=== PATIENT | male | born 1940 | race Caucasian/White ===

== ENCOUNTER 2024-11-22 14:42 | Outpatient (AMB) | payer BC, SELFPAY ==
--- NOTE | 2024-11-22 14:58 | A.OFFPC_ITS ---
Vital Signs 11/22/24 15:06 Height 5 ft 10 in Weight 190 lb 6 oz BMI 27.3 BP 130/60 Blood Pressure Location Lt brachial Position Sitting Respiration 14 Pulse 78 Pulse Source Pulse Oximeter Temp 97.6 F Temp Source Oral Pulse Oximetry (%) 97 Oxygen Delivery Method Room Air Intake Visit Reasons: Est. Care Allergies atorvastatin [From Lipitor] Allergy (Intermediate, Verified 11/22/24 14:59) Rash Medication List - Last Reconciled 11/22/24 by Albert Matthew MD finasteride 5 mg PO DAILY hydrochlorothiazide 25 mg PO DAILY simvastatin 20 mg PO BEDTIME tamsulosin 0.8 mg PO DAILY Tobacco use date assessed: 11/22/24 Fall risk assessment: No Falls in past year Last assessed Fall Risk: 11/22/24 Dental Screening Dental Screen Date: 11/22/24 Did you have a dental visit in the last 12 months?: No Did you have a dental problem in the last 6 months where you did not have access to dental care?: No Was dental information given to patient?: Patient has dentist HPI Est. Care HPI Details New Patient? ?? Prior PCP:? Dr Fleming Last office visit/CPE:? 6 mos routine viist Acute issue(s):? Ear Wax - tried some pharmacy remedies. Last Audiology testing was 5 yrs ago ?? PMHx:? HTN, BPH, HLD, Basal Cell CA on L forehead/scalp. Lung nodule that never changed - stopped surveillance. SurgHx:? Gall Bladder SocHx: Quit Cigs 12 yrs ago, EtOH 1 beer occassionally when out to eat. About 2 per month. [facility] Surgical History (Updated 11/22/24 @ 15:15 by RUTHANN Noel) History of cholecystectomy Social History Housing: House Patient Tobacco Use Status: Former Tobacco user e-Cigarette/Vaping Use: Never Used Second Hand Smoke Exposure: No service: Yes Current occupational status: retired Current occupational exposures/hazards: No Cognitive needs: No Hearing needs: No Vision needs: No Questionnaire PHQ-9 Over the last 2 weeks, how often have you been bothered by any of the following problems? 1. Little interest or pleasure in doing things: not at all 2. Feeling down, depressed, or hopeless: not at all 3. Trouble falling or staying asleep, or sleeping too much: not at all 4. Feeling tired or having little energy: several days 5. Poor appetite or overeating: not at all 6. Feeling bad about yourself - or that you are a failure or have let yourself or your family down: not at all 7. Trouble concentrating on things, such as reading the newspaper or watching television: not at all 8. Moving or speaking so slowly that other people could have noticed. Or the opposite - being so fidgety or restless that you have been moving around a lot more than usual: not at all 9. Thoughts that you would be better off or of hurting yourself in some way: not at all Total score: 1 Depression Screening Interpretation: Negative Depression Screening Done: Yes 27595 - PHQ-9 Billing: Yes Source: Developed by Drs. Ja Heck, Niesha Davila, Earnest Drake and colleagues, with an educational gustavo from [employer]. Thrive Questionnaire Date Thrive assessed: 11/22/24 I am a: Patient What is your living situation today?: I have a steady place to live Within the past 12 months, did the food you bought not last and you didn't have the money to get more?: Never true Within the past 12 months, did you worry whether your food would run out before you got money to buy more?: Never true Do you have trouble paying for medicines?: No Do you have trouble getting transportation to medical appointments?: No Do you have trouble paying your heating and electricity bill?: No Do you have trouble taking care of your child, family member or friend?: No Do you have trouble with day-to-day activities such as bathing, preparing meals, shopping, managing finances, etc.?: No Are you currently unemployed and looking for a job?: No Are you interested in more education?: No Please select the resources that you would like help with: None Currently or been in a relationship where the following occur: I choose not to answer THRIVE Score: 0 AUDIT C Alcohol Use Questionnaire (AUDIT-C) 1. How often do you have a drink containing alcohol?: Monthly or less 2. How many drinks containing alcohol do you have on a typical day when you are drinking?: 1 or 2 3. How often do you have six or more drinks on one occasion?: Never Total Score: 1 JESUS-7 AMB Questionnaire JESUS-7 Date JESUS - 7 assessed: 11/22/24 Feeling nervous, anxious, or on edge: 0 = Not at all Not being able to stop or control worryin = Not at all Worrying too much about different things: 0 = Not at all Trouble relaxin = Not at all Being so restless that it is hard to sit still: 0 = Not at all Becoming easily annoyed or irritable: 0 = Not at all Feeling afraid as if something awful might happen: 0 = Not at all Total JESUS-7 score (0-4 normal; 5-9 mild; 10-14 moderate; 15-21 severe): 0 Source: Developed by Drs. Ja Heck, Niesha Davila, Earnest Drake and colleagues, with an educational gustavo from [employer]. JESUS-7 Assessment Billing JESUS-7 Assessment Tool: JESUS-7 Assessment 51919 Review of Systems Const Denies chills, Denies fatigue, Denies fever(s), Denies headache(s) and Denies weakness ENT Denies dizziness and Denies headache(s) Card Denies chest pain, Denies lightheadedness, Denies dyspnea and Denies other (Palpitations) Resp Denies cough, Denies dyspnea, Denies wheezing and Denies other ( shortness of breath) Musc Denies numbness and Denies tingling Neuro Denies dizziness, Denies headache(s), Denies numbness, Denies tingling, Denies paresthesias and Denies weakness Psych Denies anxiety and Denies depression Endo Denies fatigue Aller/Immun Denies wheezing Physical exam (Primary Care) Vital Signs: Last Vital Signs Temp 97.6 F 11/22/24 15:06 Pulse 78 11/22/24 15:06 Resp 14 11/22/24 15:06 BP 130/60 11/22/24 15:06 Pulse Ox 97 11/22/24 15:06 Oxygen Delivery Method Room Air 11/22/24 15:06 BMI result Body Mass Index 27.3 Tobacco/Smoking Status: Tobacco use Status Tobacco use date assessed 11/22/24 11/22/24 15:01 Patient Tobacco Use Status Former Tobacco user 11/22/24 15:01 e-Cigarette/Vaping Use Never Used 11/22/24 15:01 PHQ-9: PHQ-9 Score PHQ-9: Total score 1 11/22/24 15:10 Depression Screening Interpretation: Negative Thrive Assessment: Date of Thrive Assessment Date Thrive assessed 11/22/24 11/22/24 15:09 Currently or been in a relationship where the following occur: I choose not to answer Const General: no acute distress and well developed Nutritional Appearance: well nourished Orientation/consciousness: patient oriented x3 HENMT Head: Yes normocephalic and Yes atraumatic Eyes General: appearance normal, both eyes and all related structures Pupils: Equal, round and reactive pupils present EOM: EOMs intact bilaterally Resp Effort & Inspection: normal respiratory effort Auscultation: clear to auscultation bilaterally Cardio Rate: regular rate Rhythm: regular rhythm Heart sounds: S1 normal heart sound present, S2 normal heart sound present, no gallops, no murmurs and no rubs Neuro General: patient oriented x3 and gait normal Cranial nerves: Yes Equal, round and reactive pupils present Psych Affect: normal affect Coding Level of Care Code New Pt Level 3 (26776) Diagnoses Hypertension I10 Cerumen impaction H61.20 BPH (benign prostatic hyperplasia) N40.0 Screening for prostate cancer Z12.5 History of smoking Z87.891 Lung nodule R91.1 HLD (hyperlipidemia) E78.5 Change in hearing H91.90 Laboratory exam ordered as part of routine general medical examination Z00.00 Additional Codes JESUS-7 Assessment Billing - JESUS-7 Assessment Tool: JESUS-7 Assessment 23180 ([id number]) PHQ-9 - 37708 - PHQ-9 Billing: Yes ([id number]) Assessment & Plan Assessment & Plan (1) Hypertension: Code(s): I10 - Essential (primary) hypertension Category: Medical Plan: Blood?pressure?is?controlled.??Goal?is?less?than?140/90 Continue?current?medication (2) Cerumen impaction: Code(s): H61.20 - Impacted cerumen, unspecified ear Category: Medical Plan: Patient?notes?frequent?cerumen?impactions. He?has?been?using?Debrox?drops?and?has?no?current?cerumen?in?ear?canals. Does?have?some?irritation?there?and?he?notes?significant?itch Can?try?ascetic?acid?drops If?not?improving?will?refer?to?ENT (3) BPH (benign prostatic hyperplasia): Code(s): N40.0 - Benign prostatic hyperplasia without lower urinary tract symptoms Category: Medical Plan: History?of?BPH?and?he?is?on?finasteride?and?tamsulosin. PSA?level?greater?than?6?and?patient?was?referred?to?Urology. Will?request?report (4) Screening for prostate cancer: Code(s): Z12.5 - Encounter for screening for malignant neoplasm of prostate Category: Medical Plan: Checking?PSA?which?will?likely?be?elevated?as?he?has?a?history?of?BPH Will?follow (5) History of smoking: Code(s): Z87.891 - Personal history of nicotine dependence Category: Social Hx Plan: Patient?with?over?10?years?ago (6) Lung nodule: Code(s): R91.1 - Solitary pulmonary nodule Category: Medical Plan: History?of?lung?nodule?and?has?completed?surveillance (7) HLD (hyperlipidemia): Code(s): E78.5 - Hyperlipidemia, unspecified Category: Medical Plan: Check?lipids Continue?simvastatin (8) Change in hearing: Code(s): H91.90 - Unspecified hearing loss, unspecified ear Category: Medical Plan: Some?changes?in?hearing?and?patient?has?some?difficulty?hearing?examiner?today Referred?to?audiology (9) Laboratory exam ordered as part of routine general medical examination: Code(s): Z00.00 - Encounter for general adult medical examination without abnormal findings Category: Medical Plan: Check?labs Orders: Orders Complete Blood Count Auto Diff Today Z00.00 - Encounter for general adult medical examination without abnormal findings Lipid Panel Today Z00.00 - Encounter for general adult medical examination without abnormal findings Microalbumin, Random (w Creat) Today I10 - Essential (primary) hypertension UA CC w/rflx Micro + Cult Today Z00.00 - Encounter for general adult medical examination without abnormal findings TSH reflex Free T4 Today Z00.00 - Encounter for general adult medical examination without abnormal findings Vitamin B12 and Folate Today E53.8 - Deficiency of other specified B group vitamins Comprehensive [place]. Panel Fast Today Z00.00 - Encounter for general adult medical examination without abnormal findings Prostate Specific Antigen Scr Today Z12.5 - Encounter for screening for malignant neoplasm of prostate Vitamin D 25-OH Total Today E55.9 - Vitamin D deficiency, unspecified Referrals Audiology Referral H91.90 - Unspecified hearing loss, unspecified ear Medications: New acetic acid 2% 4 drps otic (ear) left TID 7 days 15 mL 1RF
[2024-11-22 15:06] VITALS: BP 130/60; PULSE 78; RESP 14; TEMP 36.4; O2SAT 97; BMI 27.3
== END 2024-11-22 15:43 | disposition home or self-care (01) ==
LOC: HO.HMCFM 14:43
PROVIDERS: PCP Family Medicine; Visit Provider Family Medicine
DX: I10 Essential (primary) hypertension (principal); H61.20 Impacted cerumen, unspecified ear; N40.0 Benign prostatic hyperplasia without lower urinary tract symptoms; Z12.5 Encounter for screening for malignant neoplasm of prostate; Z87.891 Personal history of nicotine dependence; R91.1 Solitary pulmonary nodule; E78.5 Hyperlipidemia, unspecified; H91.90 Unspecified hearing loss, unspecified ear; Z00.00 Encounter for general adult medical examination without abnormal findings

== ENCOUNTER → 2024-11-22 14:42 | Outpatient (BNVA) | payer BC, SELFPAY | PROVIDERS: PCP Family Medicine; Visit Provider Family Medicine | DX: Z76.89 Persons encountering health services in other specified circumstances (principal); I10 Essential (primary) hypertension; H61.20 Impacted cerumen, unspecified ear; N40.0 Benign prostatic hyperplasia without lower urinary tract symptoms; R91.1 Solitary pulmonary nodule; E78.5 Hyperlipidemia, unspecified; Z79.899 Other long term (current) drug therapy; Z87.891 Personal history of nicotine dependence | CPT/HCPCS: 96127 ==

== ENCOUNTER 2024-11-23 08:21 | Outpatient (REF) | payer BC, SELFPAY ==
[2024-11-23 11:26] LABS: MANUAL DIFF FLAG NO
[2024-11-23 11:55] LABS: Appearance Urine Clear; Color Urine Yellow; Glucose Urine UA Negative (Negative); Leukocyte Esterase Urine Negative (Negative); Nitrite Urine Negative (Negative); PH 6.5 (5.0-9.0); Urine Blood Negative (Negative); Urine Ketones Trace mg/dL (Negative); Urine Protein Negative (Neg-Trace)
[2024-11-23 12:02] LABS: Basophils Percent Auto 0.2 % (0-2); Eosinophils Absolute Auto 0.1 X10*3/uL (0.0-0.4); Eosinophils Percent Auto 1.1 % (0-4); Hematocrit 42.9 % (42.0-52.0); Imm Gran Abs Auto 0.01 X10*3/uL (0.00-0.03); Imm Gran Pct Auto 0.2 % (0.0-0.4); Lymphocytes Absolute Auto 0.9 X10*3/uL (1.2-4.9); Lymphocytes Percent Auto 16.3 % (20-40); Mean Corpuscular Hemoglobin 31.7 pg (27.0-33.0); Mean Corpuscular Volume 90.7 fL (80.0-98.0); Mean Platelet Volume 9.9 fL (9.4-12.4); Monocytes Absolute Auto 0.6 X10*3/uL (0.1-1.2); Monocytes Percent Auto 10.4 % (2-11); Neutrophils Percent Auto 71.8 % (45-73); Platelet Count 165 X10*3/uL (160-400); Red Blood Count 4.73 X10*6/uL (4.60-5.80); White Blood Count 5.6 X10*3/uL (4.8-10.8)
[2024-11-23 12:23] LABS: Alanine Aminotransferase 28 U/L (0-40); Alkaline Phosphatase 83 U/L (39-117); Anion Gap 11 (12-20); Aspartate Amino Transferase 29 U/L (5-37); Blood Urea Nitrogen 13 mg/dL (9-16); Carbon Dioxide 30 mmol/L (22-29); Chloride 104 mmol/L (96-108); Cholesterol 146 mg/dL (<200); Estimated Glomerular Filt Rate > 60; Glucose Fasting 94 mg/dL (60-99); HDL Cholesterol 34 mg/dL (>40); LDL Cholesterol Calculated 80 mg/dL (<100); Potassium 3.7 mmol/L (3.3-5.1); Sodium 141 mmol/L (135-145); Total Protein 6.7 g/dL (6.5-8.0); Triglycerides 162 mg/dL (<150)
[2024-11-23 12:31] LABS: Creatinine Urine 195.08 mg/dL; Microalbum/Creatinine Ratio Ur 10.7 ug/mg cr (<30)
[2024-11-23 12:32] LABS: TSH reflex Free T4 1.88 uIU/mL (0.32-4.0); Vitamin D 25-OH Total 45.5 ng/mL (>30)
[2024-11-23 12:48] LABS: Folate 12.5 ng/mL (> or = 4.0); Prostate Specific Antigen Scr 3.43 ng/mL (<0.05-4.0); Vitamin B12 707 pg/mL (200-900)
== END 2024-11-23 08:22 | disposition home or self-care (01) ==
LOC: HO.WFDLDS 08:21
PROVIDERS: Visit Provider Family Medicine
DX: Z00.00 Encounter for general adult medical examination without abnormal findings (principal); E53.8 Deficiency of other specified B group vitamins; I10 Essential (primary) hypertension; Z12.5 Encounter for screening for malignant neoplasm of prostate; E55.9 Vitamin D deficiency, unspecified
CPT/HCPCS: 36415; 80053; 80061; 81003; 82043; 82306; 82570; 82607; 82746; 84153; 84443; 85025

== ENCOUNTER 2024-12-21 08:38 | Outpatient (REF) | payer BC, SELFPAY | END 2024-12-21 08:39 | disposition home or self-care (01) | LOC: HO.SH 08:38 | PROVIDERS: Visit Provider Family Medicine | DX: Z01.118 Encounter for examination of ears and hearing with other abnormal findings (principal); H90.3 Sensorineural hearing loss, bilateral | CPT/HCPCS: 92557 ==

== ENCOUNTER 2025-02-17 09:56 | Outpatient (AMB) | payer BC, SELFPAY ==
--- NOTE | 2025-02-17 10:29 | A.OFFVIS_ITS ---
Intake Visit Reasons: BPH without lower urinary tract symptoms Intake Note: PT PRESENTS FOR: NEW PT BPH W/OUT LOWER URINARY TRACT SX UROLOGY MEDICATIONS: TAMSULOSIN, FINASTERIDE BLOOD THINNERS: NONE Hand Straightener Required: No Accompanied by: Self / Same As Patient Allergies atorvastatin (From Lipitor) Allergy (Intermediate, Verified 02/17/25 10:30) Rash HPI Comments Details: Robert is a pleasant male. He is a patient of Dr. Matthew. He is seen for the following urologic conditions - lower urinary tract symptoms PVR 95 cc Treated for recent episode UTI/prostatitis Had stopped his prostate medications Restart finasteride and tamsulosin Bladder ultrasound Three-month follow-up cystoscopy office Lower urinary tract symptoms Previously reported being on finasteride and tamsulosin PFSH Surgical History (Updated 11/22/24 @ 15:15 by RUTHANN Noel) History of cholecystectomy Social History Housing: House Patient Tobacco Use Status: Former Tobacco user e-Cigarette/Vaping Use: Never Used Second Hand Smoke Exposure: No service: Yes Current occupational status: retired Current occupational exposures/hazards: No Cognitive needs: No Hearing needs: No Vision needs: No Review of Systems Const Denies chills and Denies fever(s) Card Reports no additional complaints and Denies syncope Resp Denies cough GI Denies abdominal pain and Denies heartburn Reports as per HPI and Denies change in libido Neuro Denies syncope Psych Denies change in libido Endo Denies change in libido Physical Exam Const General: cooperative, healthy appearing, comfortable and no acute distress Orientation/consciousness: patient oriented x3 HEENT Face and sinus: Yes normal facial exam Mouth: moist mucous membranes Neck Neck: Yes normal visual inspection, Yes full ROM and Yes trachea midline Chest Chest palpation & inspection: normal inspection of the chest Resp Effort & Inspection: normal respiratory effort, able to speak in complete sentences and no respiratory distress GI Inspection: Yes normal to inspection Back/Spine/Pelvis Cervical Spine: normal cervical lordosis Thoracic/Lumbar Spine: thoracic and lumbar spine normal to inspection Skin General skin exam: no rashes or lesions noted Neuro General: patient oriented x3, gait normal, tone normal and moves all extremities Extrem General: Yes normal to inspection and Yes capillary refill normal Office Procedures Post Void Residual Post Residual Void Post Void Residual (PVR): 95 [id number] Void Residual by ultrasound Assessment & Plan Assessment & Plan (1) BPH (benign prostatic hyperplasia): Code(s): N40.0 - Benign prostatic hyperplasia without lower urinary tract symptoms Category: Medical Plan Three-month follow-up cystoscopy office Orders: Orders AMB Urinalysis Automated Today Z13.9 - Encounter for screening, unspecified AMB Post Void Residual by ultrasound Today N40.0 - Benign prostatic hyperplasia without lower urinary tract symptoms US bladder Today N40.0 - Benign prostatic hyperplasia without lower urinary tract symptoms Medications: New finasteride 5 mg PO DAILY 90 tabs 1RF 90 days N40.0 - Benign prostatic hyperplasia without lower urinary tract symptoms Changed From tamsulosin 0.8 mg PO DAILY N40.0 - Benign prostatic hyperplasia without lower urinary tract symptoms To tamsulosin 0.8 mg (2 x 0.4 mg) PO DAILY 180 caps 0RF 90 days N40.0 - Benign prostatic hyperplasia without lower urinary tract symptoms Patient Instructions: This note is constructed using voice recognition software. While every effort has been made to ensure accuracy oil processing technician errors may have been included. Imaging studies, laboratory and physical exam results were discussed and reviewed in detail. No major barriers to patient understanding were identified. An opportunity to ask questions regarding the treatment plan was provided. All questions were answered. The patient expressed understanding and agreement with the above treatment plan. The patient is aware they should contact our office by phone for worsening of their current condition or the appearance of new urologic symptoms. Compliance is encouraged with any medications and followup testing that is ordered. It is a privilege to participate in the urologic care of your patient. If you have any questions or concerns regarding treatment for the above conditions, or other urologic issues, please do not hesitate to contact me. The office telephone contact is [phone]. Sincerely, Dr Yohannes Denton MD, [facility] - Urology Compassionate Specialist Care for the Genitourinary System Coding Level of Care Code New Pt Level 4 (18131) Diagnoses BPH (benign prostatic hyperplasia) N40.0 CPT Codes Post Residual Void - PVR CPT Code: 37060-Cvcl Void Residual by ultrasound ([id number])
== END 2025-02-17 11:03 | disposition home or self-care (01) ==
LOC: HO.HUSH 10:09
PROVIDERS: PCP Family Medicine; Visit Provider Urology
DX: N40.0 Benign prostatic hyperplasia without lower urinary tract symptoms (principal)
CPT/HCPCS: 99204

== ENCOUNTER → 2025-02-17 09:56 | Outpatient (BNVA) | payer BC, SELFPAY | PROVIDERS: PCP Family Medicine; Visit Provider Urology | DX: N40.0 Benign prostatic hyperplasia without lower urinary tract symptoms (principal) | CPT/HCPCS: 51798 ==

== ENCOUNTER 2025-03-30 14:01 | Outpatient (AMB) | payer BC, SELFPAY ==
--- NOTE | 2025-03-30 14:02 | A.OFFPC_ITS ---
Vital Signs 03/30/25 14:09 Height 5 ft 10 in Weight 184 lb 6 oz BMI 26.5 BP 124/60 Blood Pressure Location Rt brachial Position Sitting Respiration 14 Pulse 86 Pulse Source Pulse Oximeter Temp 97.5 F Temp Source Temporal Artery Scan Pulse Oximetry (%) 95 Oxygen Delivery Method Room Air Intake Visit Reasons: Physical Intake Note: Ramos presents in the office today for his annual physical. Clay Hoister Required: No Allergies atorvastatin (From Lipitor) Allergy (Intermediate, Verified 03/30/25 14:06) Rash Medication List - Last Reconciled 03/30/25 by Alebrt Matthew MD acetic acid 2% 4 drps otic (ear) left TID 7 days finasteride 5 mg PO DAILY 90 days hydrochlorothiazide 25 mg PO DAILY simvastatin 20 mg PO BEDTIME tamsulosin 0.8 mg (2 x 0.4 mg) PO DAILY 90 days Tobacco use date assessed: 03/30/25 Fall risk assessment: No Falls in past year Last assessed Fall Risk: 03/30/25 Dental Screening Dental Screen Date: 03/30/25 Did you have a dental visit in the last 12 months?: Yes Did you have a dental problem in the last 6 months where you did not have access to dental care?: No Was dental information given to patient?: Patient has dentist HPI Physical HPI Details 84 y/o male presents for a CPE with f/u labs. Labs drawn 11/23/24. Reviewed labs with pt. Triglycerides 162. TC 146. LDL 80. HDL low at 34. PSA 3.43. Vitamin D 45.5. BP today 124/60, 86p. He is on hydrochlorothiazide 25mg daily. Has complaints of some ear irritation. Reports constipation. Notes some unsteady gait. Does have some mild tremor on one side. Pt also notes issues with words. Also reports some vision changes. HPI Comments History of Present Illness Details Documentation assistance for Albert Matthew MD, was provided by Paulo Sanchez,? Vehicle Calibration Engineer on 03/30/2025 at 2:31 PM EST. I, Dr. Matthew, have read, observed, and verified documentation. ? PFSH Surgical History (Updated 11/22/24 @ 15:15 by RUTHANN Noel) History of cholecystectomy Social History Housing: House Alcohol intake: former Patient Tobacco Use Status: Former Tobacco user e-Cigarette/Vaping Use: Never Used Second Hand Smoke Exposure: No service: Yes Current occupational status: retired Current occupational exposures/hazards: No Cognitive needs: No Hearing needs: No Vision needs: No Questionnaire PHQ-9 Over the last 2 weeks, how often have you been bothered by any of the following problems? 1. Little interest or pleasure in doing things: not at all 2. Feeling down, depressed, or hopeless: not at all 3. Trouble falling or staying asleep, or sleeping too much: not at all 4. Feeling tired or having little energy: more than half the days 5. Poor appetite or overeating: more than half the days 6. Feeling bad about yourself - or that you are a failure or have let yourself or your family down: not at all 7. Trouble concentrating on things, such as reading the newspaper or watching television: not at all 8. Moving or speaking so slowly that other people could have noticed. Or the opposite - being so fidgety or restless that you have been moving around a lot more than usual: not at all 9. Thoughts that you would be better off or of hurting yourself in some way: not at all Total score: 4 Depression Screening Interpretation: Negative Depression Screening Done: Yes 28131 - PHQ-9 Billing: Yes Source: Developed by Drs. Ja Heck, Niesha Davila, Earnest Drake and colleagues, with an educational gustavo from [employer]. Thrive Questionnaire Date Thrive assessed: 03/30/25 I am a: Patient What is your living situation today?: I have a steady place to live Within the past 12 months, did the food you bought not last and you didn't have the money to get more?: Never true Within the past 12 months, did you worry whether your food would run out before you got money to buy more?: Never true Do you have trouble paying for medicines?: No Do you have trouble getting transportation to medical appointments?: No Do you have trouble paying your heating and electricity bill?: No Do you have trouble taking care of your child, family member or friend?: No Do you have trouble with day-to-day activities such as bathing, preparing meals, shopping, managing finances, etc.?: No Are you currently unemployed and looking for a job?: No Are you interested in more education?: No Please select the resources that you would like help with: None Currently or been in a relationship where the following occur: I choose not to answer THRIVE Score: 0 AUDIT C Alcohol Use Questionnaire (AUDIT-C) 1. How often do you have a drink containing alcohol?: Never 3. How often do you have six or more drinks on one occasion?: Never Total Score: 0 JESUS-7 AMB Questionnaire JESUS-7 Date JESUS - 7 assessed: 03/30/25 Feeling nervous, anxious, or on edge: 0 = Not at all Not being able to stop or control worryin = Not at all Worrying too much about different things: 0 = Not at all Trouble relaxin = Not at all Being so restless that it is hard to sit still: 0 = Not at all Becoming easily annoyed or irritable: 0 = Not at all Feeling afraid as if something awful might happen: 0 = Not at all Total JESUS-7 score (0-4 normal; 5-9 mild; 10-14 moderate; 15-21 severe): 0 Source: Developed by Drs. Ja Heck, Niesha Davila, Earnest Drake and colleagues, with an educational gustavo from [employer]. JESUS-7 Assessment Billing JESUS-7 Assessment Tool: JESUS-7 Assessment 21910 Review of Systems Const Denies chills, Denies fatigue, Denies fever(s), Denies headache(s) and Denies weakness Eyes Denies change in vision ENT Denies dizziness, Denies headache(s), Denies hearing loss, Denies nasal congestion, Denies sinus pain, Denies sinus pressure and Denies sore throat Card Denies chest pain, Denies lightheadedness, Denies dyspnea and Denies other (palpitations) Resp Denies cough, Denies dyspnea and Denies wheezing GI Denies abdominal pain, Denies melena, Denies hematochezia, Denies change in bowel habits, Denies dyspepsia and Denies nausea Denies hematuria and Denies dysuria Musc Denies abnormal gait, Denies myalgias, Denies arthralgias, Denies numbness and Denies tingling Skin/Breast Denies rash, Denies unusual bruising and Denies wounds Neuro Denies abnormal gait, Denies dizziness, Denies headache(s), Denies memory loss, Denies numbness, Denies Sensory deficit (Neuro), Denies tingling and Denies weakness Psych Denies anxiety, Denies depression and Denies memory loss Endo Denies cold intolerance, Denies fatigue, Denies heat intolerance, Denies polydipsia and Denies polyuria Demond/Lymph Denies easy bleeding and Denies easy bruising Aller/Immun Denies wheezing Physical exam (Primary Care) Vital Signs: Last Vital Signs Temp 97.5 F 03/30/25 14:09 Pulse 86 03/30/25 14:09 Resp 14 03/30/25 14:09 BP 124/60 03/30/25 14:09 Pulse Ox 95 03/30/25 14:09 Oxygen Delivery Method Room Air 03/30/25 14:09 BMI result Body Mass Index 26.5 Tobacco/Smoking Status: Tobacco use Status Tobacco use date assessed 03/30/25 03/30/25 14:04 Patient Tobacco Use Status Former Tobacco user 03/30/25 14:09 e-Cigarette/Vaping Use Never Used 03/30/25 14:09 PHQ-9: PHQ-9 Score PHQ-9: Total score 4 03/30/25 14:12 Depression Screening Interpretation: Negative Thrive Assessment: Date of Thrive Assessment Date Thrive assessed 03/30/25 03/30/25 14:12 Currently or been in a relationship where the following occur: I choose not to answer Const General: no acute distress, well developed, alert and awake Nutritional Appearance: well nourished Orientation/consciousness: patient oriented x3 HENMT Head: Yes normocephalic and Yes atraumatic Ears: hearing grossly normal bilaterally and TM's normal bilaterally General nose exam: Normal external nose present and Normal nares present Mouth: Normal oral and palatal mucosa present and moist mucous membranes Teeth and gingiva: dentition normal Throat: Yes posterior oropharynx normal Eyes General: appearance normal, both eyes and all related structures Pupils: Equal, round and reactive pupils present and Pupil accommodation reflex normal EOM: EOMs intact bilaterally Neck Neck: Yes normal visual inspection, Yes no lymphadenopathy and Yes trachea midline Thyroid: Thyroid normal Carotids: no bruits Lymphatic: no lymphadenopathy noted Chest Chest palpation & inspection: normal inspection of the chest Resp Effort & Inspection: normal respiratory effort Auscultation: clear to auscultation bilaterally Cardio Rate: regular rate Rhythm: regular rhythm Heart sounds: S1 normal heart sound present, S2 normal heart sound present, no gallops, no murmurs and no rubs Bruits: no abdominal aortic bruits and no carotid bruits GI Palpation (GI): No Abdominal aortic bruit present, Soft to palpation, nontender, No hepatosplenomegaly present and No Rebound tenderness present Auscultation: normal bowel sounds General: Yes no CVA tenderness Back/Spine/Pelvis Back: no CVA tenderness Cervical Spine: cervical ROM normal and No Cervical spine tenderness Thoracic/Lumbar Spine: thoraco-lumbar ROM normal, No pain with thoraco-lumbar ROM, No thoracic spinal tenderness and No lumbar spinal tenderness Skin Lesions: no lesions Rashes: no rashes Trauma: no lacerations or abrasions Wounds: no wounds Nails: normal Neuro Other: Abnormality with finger to nose test on L arm L arm tremor General: patient oriented x3 Cranial nerves: Yes Equal, round and reactive pupils present Cognition (Neuro): normal cognition Motor exam (neuro): 5/5 motor strength present throughout Sensory Exam: No Sensory deficit (Neuro) Deep tendon reflexes (DTR's): Right patellar reflex intensity grade: 2+ and Left patellar reflex intensity grade: 2+ Extrem General: Yes normal to inspection and No edema Psych Appearance: grossly normal Affect: normal affect Attitude: cooperative Thought process: Normal thought process present Coding Level of Care Code Est Pt Level 3 (09447) Est Pt Prev Care >65y(37247) Diagnoses Adult general medical exam Z00.00 Hypertension I10 HLD (hyperlipidemia) E78.5 Screening for prostate cancer Z12.5 Irritation of ear H93.8X9 Constipation K59.00 Unsteady gait R26.81 Muscle tremor R25.1 Word finding difficulty R47.89 Additional Codes JESUS-7 Assessment Billing - JESUS-7 Assessment Tool: JESUS-7 Assessment 44310 ([id number]) PHQ-9 - 75337 - PHQ-9 Billing: Yes ([id number]) Assessment & Plan Assessment & Plan (1) Adult general medical exam: Code(s): Z00.00 - Encounter for general adult medical examination without abnormal findings Category: Medical Plan: 84-year-old male presents for complete physical exam (2) Hypertension: Code(s): I10 - Essential (primary) hypertension Category: Medical Plan: Blood pressure is controlled. Goal is less than 140/90 Continue current medication (3) HLD (hyperlipidemia): Code(s): E78.5 - Hyperlipidemia, unspecified Category: Medical Plan: He is on simvastatin and total cholesterol and LDL are well controlled. HDL is a little too low. Encouraged exercise (4) Screening for prostate cancer: Code(s): Z12.5 - Encounter for screening for malignant neoplasm of prostate Category: Medical Plan: PSA has been elevated He is followed by Dr. Denton, Urology - plans to repeat PSA in July and decide on biopsies at that time. (5) Irritation of ear: Code(s): H93.8X9 - Other specified disorders of ear, unspecified ear Category: Medical Plan: Ongoing irritation at left ear He can try a small amount of hydrocortisone cream. Can also use a moisturizer that has no dyes or perfumes Referred to ENT (6) Constipation: Code(s): K59.00 - Constipation, unspecified Category: Medical Plan: Increase hydration Can use Metamucil as well (7) Unsteady gait: Code(s): R26.81 - Unsteadiness on feet Category: Medical (8) Muscle tremor: Code(s): R25.1 - Tremor, unspecified Category: Medical (9) Word finding difficulty: Code(s): R47.89 - Other speech disturbances Category: Medical Plan Patient notes new word-finding problems as well as depth perception challenges and has a left-sided upper extremity tremor with abnormal [id number] test with his left arm. Will get an MRI Orders: Orders MR head/brain wo con Today R25.1 - Tremor, unspecified, R26.81 - Unsteadiness on feet, R47.89 - Other speech disturbances Referrals Ear/Nose/Throat Referral H93.8X9 - Other specified disorders of ear, unspecified ear
[2025-03-30 14:09] VITALS: BP 124/60; PULSE 86; RESP 14; TEMP 36.4; O2SAT 95; BMI 26.5
== END 2025-03-30 14:53 | disposition home or self-care (01) ==
LOC: HO.HMCFM 14:01
PROVIDERS: PCP Family Medicine; Visit Provider Family Medicine
DX: Z00.00 Encounter for general adult medical examination without abnormal findings (principal); I10 Essential (primary) hypertension; R25.1 Tremor, unspecified; R47.89 Other speech disturbances; R26.81 Unsteadiness on feet; E78.5 Hyperlipidemia, unspecified; Z12.5 Encounter for screening for malignant neoplasm of prostate; H93.8X2 Other specified disorders of left ear; K59.00 Constipation, unspecified

== ENCOUNTER → 2025-03-30 14:01 | Outpatient (BNVA) | payer BC, SELFPAY | PROVIDERS: PCP Family Medicine; Visit Provider Family Medicine | DX: Z00.00 Encounter for general adult medical examination without abnormal findings (principal); R26.81 Unsteadiness on feet; I10 Essential (primary) hypertension; E78.5 Hyperlipidemia, unspecified; K59.00 Constipation, unspecified; R25.1 Tremor, unspecified; R47.89 Other speech disturbances | CPT/HCPCS: 96127 ==

== ENCOUNTER 2025-05-09 12:14 | Outpatient (REF) | payer MEDICARE, SELFPAY ==
--- NOTE | ~2025-05-09 | US_ITS ---
EXAMINATION: US PELVIS LIMITED (BLADDER) CLINICAL INFORMATION: N40.0 - Benign prostatic hyperplasia without lower urinary tract symptoms. COMPARISON: None available. TECHNIQUE: Ultrasound of the bladder with grayscale and color Doppler imaging. FINDINGS: BLADDER: Well distended and normal. There is mass effect on the posterior related to hypertrophied prostate. Bilateral ureteral jets are demonstrated. Prevoid bladder volume is 153 mL. Postvoid bladder volume is 24 mL. Prostate volume measured 51 mL. US/US bladder IMPRESSION: Unremarkable bladder and minimal residual postvoid volume.. Electronically signed by: Axel Gibbs MD 05/09/2025 01:08 PM [facility]
== END 2025-05-09 12:15 | disposition home or self-care (01) ==
LOC: HO.US 12:14
PROVIDERS: PCP Family Medicine; Visit Provider Urology
DX: N40.0 Benign prostatic hyperplasia without lower urinary tract symptoms (principal)
CPT/HCPCS: 76857

== ENCOUNTER → 2025-05-09 12:18 | Outpatient (BNV) | payer MEDICARE, SELFPAY | PROVIDERS: PCP Family Medicine; Visit Provider Radiology Diagnostic Radiology | DX: N40.0 Benign prostatic hyperplasia without lower urinary tract symptoms (principal) | CPT/HCPCS: 76857 ==

== ENCOUNTER 2025-05-20 09:57 | Outpatient (AMB) | payer BC, SELFPAY ==
--- NOTE | 2025-05-20 10:11 | MHC.OFFVIS ---
Intake Visit Reasons: cysto/US Intake Note: Patient is present for Cystoscopy/US Results Urology Med: Tamsulosin, Finasteride Antibiotic Allergy: None Blood Thinner: None Last PSA- 3.43 11/23/2024 Bladder US- 05/09/2025 URO G-HD Cystoscope LOT: EXP: Accompanied by: Self / Same As Patient Allergies atorvastatin (From Lipitor) Allergy (Intermediate, Verified 03/30/25 14:06) Rash HPI Comments Details: Robert is a pleasant male. He is a patient of Dr. Matthew. He is seen for the following urologic conditions - lower urinary tract symptoms Low PVR currently UA normal Has restarted his prostate medications Continue with finasteride Any waking once at night Happy with how his symptoms currently going Lower urinary tract symptoms Previously reported being on finasteride and tamsulosin Bladder ultrasound adequate emptying, prostate 50 g PFSH Medical History (Updated 05/16/25 @ 09:33 by Viridiana Thompson Shubham) Nocturia Elevated PSA Hx of skin malignancy Surgical History (Updated 11/22/24 @ 15:15 by Yuan [facility] History of cholecystectomy Social History (Updated 03/30/25 @ 14:09 by Lashonda Peterson ROPE WALKER) Housing: House Alcohol intake: former Patient Tobacco Use Status: Former Tobacco user e-Cigarette/Vaping Use: Never Used Second Hand Smoke Exposure: No service: Yes Current occupational status: retired Current occupational exposures/hazards: No Cognitive needs: No Hearing needs: No Vision needs: No Review of Systems Const Denies chills and Denies fever(s) Card Reports no additional complaints and Denies syncope Resp Denies cough GI Denies abdominal pain and Denies heartburn Reports as per HPI and Denies change in libido Neuro Denies syncope Psych Denies change in libido Endo Denies change in libido Physical Exam Const General: cooperative, healthy appearing, comfortable and no acute distress Orientation/consciousness: patient oriented x3 HEENT Face and sinus: Yes normal facial exam Mouth: moist mucous membranes Neck Neck: Yes normal visual inspection, Yes full ROM and Yes trachea midline Chest Chest palpation & inspection: normal inspection of the chest Resp Effort & Inspection: normal respiratory effort, able to speak in complete sentences and no respiratory distress GI Inspection: Yes normal to inspection Back/Spine/Pelvis Cervical Spine: normal cervical lordosis Thoracic/Lumbar Spine: thoracic and lumbar spine normal to inspection Skin General skin exam: no rashes or lesions noted Neuro General: patient oriented x3, gait normal, tone normal and moves all extremities Extrem General: Yes normal to inspection and Yes capillary refill normal Results AMB Urinalysis, Automated UA Leukoctes 0 Yeni/uL Last Edit by Viridiana Thompson, A on 05/20/25 10:33 UA Nitrite Negative Last Edit by Viridiana Thompson, A on 05/20/25 10:33 UA Urobilinogen 0.2 mg/dL Last Edit by Viridiana Thompson, A on 05/20/25 10:33 UA Protein 0 mg/dL Last Edit by Viridiana Thompson, A on 05/20/25 10:33 UA pH 6.0 Last Edit by Viridiana Thompson, A on 05/20/25 10:33 UA Blood 0 Mak/uL Last Edit by Viridiana Thompson, A on 05/20/25 10:33 UA Specific Howe 1.020 Last Edit by Viridiana Thompson [facility] on 05/20/25 10:33 UA Ketone Negative Last Edit by Viridiana Thompson, A on 05/20/25 10:33 UA Bilirubin 0 mg/dL Last Edit by Viridiana Thompson [facility] on 05/20/25 10:33 UA Glucose 0 mg/dL Last Edit by Viridiana Thompson, A on 05/20/25 10:33 Assessment & Plan Assessment & Plan (1) BPH (benign prostatic hyperplasia): Code(s): N40.0 - Benign prostatic hyperplasia without lower urinary tract symptoms Category: Medical Plan Six-month follow-up Orders: Orders AMB Urinalysis Automated Today Z13.9 - Encounter for screening, unspecified Medications: Refilled finasteride 5 mg PO DAILY 90 tabs 1RF 90 days N40.0 - Benign prostatic hyperplasia without lower urinary tract symptoms Patient Instructions: This note is constructed using voice recognition software. While every effort has been made to ensure accuracy consumer loan processor errors may have been included. Imaging studies, laboratory and physical exam results were discussed and reviewed in detail. No major barriers to patient understanding were identified. An opportunity to ask questions regarding the treatment plan was provided. All questions were answered. The patient expressed understanding and agreement with the above treatment plan. The patient is aware they should contact our office by phone for worsening of their current condition or the appearance of new urologic symptoms. Compliance is encouraged with any medications and followup testing that is ordered. It is a privilege to participate in the urologic care of your patient. If you have any questions or concerns regarding treatment for the above conditions, or other urologic issues, please do not hesitate to contact me. The office telephone contact is [phone]. Sincerely, Dr Yohannes Denton MD, [facility] - Urology Compassionate Specialist Care for the Genitourinary System Coding Level of Care Code Est Pt Level 3 (27182) Complex EM visit Add On G2211 Diagnoses BPH (benign prostatic hyperplasia) N40.0
== END 2025-05-20 10:41 | disposition home or self-care (01) ==
PROVIDERS: PCP Family Medicine; Visit Provider Urology
DX: Z13.9 Encounter for screening, unspecified (principal); N40.0 Benign prostatic hyperplasia without lower urinary tract symptoms
CPT/HCPCS: 99213

== ENCOUNTER → 2025-05-20 09:57 | Outpatient (BNVA) | payer BC, SELFPAY | PROVIDERS: PCP Family Medicine; Visit Provider Urology | DX: N40.0 Benign prostatic hyperplasia without lower urinary tract symptoms (principal) | CPT/HCPCS: 81003 ==